=== PATIENT | male | born 1995 | race African-American/Black ===

== ENCOUNTER 2017-12-22 16:37 | Emergency (ER) | payer OTHER ==
[~2017-12-22] VITALS: Ht 180.3 cm; Wt 100.0 kg
[2017-12-22 18:48] VITALS: BP 108/83
== END 2017-12-22 20:00 | disposition left against medical advice (07) ==
LOC: ER 16:37
DX: Z53.21 Procedure and treatment not carried out due to patient leaving prior to being seen by health care provider (principal)